=== PATIENT | male | born 1965 | race African-American/Black ===

== ENCOUNTER 2018-06-15 17:42 | Emergency (ER) | payer OTHER ==
[~2018-06-15] VITALS: Ht 177.8 cm; Wt 86.2 kg
[~2018-06-15 17:42] MED LIST: BENAZEPRIL HCL10 MG ORAL; KEPPRA500 M4 ORAL
[2018-06-15 17:45] VITALS: BP 116/85
[2018-06-15] MEDS ORDERED: Sodium Chloride 500ML 500 ML IV ONE (17:58)
[2018-06-15] MEDS ORDERED: levETIRAcetam 500 MG in D5W 110 ML IV ONE (18:00)
[2018-06-15 18:22] LABS: BASOPHILS % (AUTO) 2.7 % (0.0-2.0); EOSINOPHILS % (AUTO) 4.9 % (0.0-3.0); HEMATOCRIT 52.6 % (42.0-52.0); HEMOGLOBIN 16.4 G/DL (14.2-18.0); LYMPHOCYTES % (AUTO) 46.5 % (20.0-45.0); MEAN CORPUSCULAR VOLUME 94 FL (80-99); MONOCYTES % (AUTO) 6.5 % (1.0-10.0); NEUTROPHILS % (AUTO) 39.3 % (45.0-75.0); PLATELET COUNT 290 K/UL (150-450); RED BLOOD COUNT 5.58 M/UL (4.70-6.10); RED CELL DISTRIBUTION WIDTH 14.6 % (11.6-14.8); WHITE BLOOD COUNT 8.3 K/UL (4.8-10.8)
[2018-06-15 18:26] LABS: ANION GAP 28 mmol/L (5-15); BLOOD UREA NITROGEN 18 mg/dL (7-18); CALCIUM 9.9 MG/DL (8.5-10.1); CARBON DIOXIDE 10 MMOL/L (21-32); CHLORIDE 105 MMOL/L (98-107); CREATININE 2.7 MG/DL (0.55-1.30); POTASSIUM 4.7 MMOL/L (3.5-5.1); SODIUM 143 MMOL/L (136-145)
[2018-06-15 18:33] LABS: ALANINE AMINOTRANSFERASE 32 U/L (12-78); ALBUMIN 4.1 G/DL (3.4-5.0); ALBUMIN/GLOBULIN RATIO 1.1 (1.0-2.7); ALKALINE PHOSPHATASE 64 U/L (46-116); ASPARTATE AMINO TRANSFERASE 26 U/L (15-37); BILIRUBIN,TOTAL 0.4 MG/DL (0.2-1.0)
[2018-06-15] MEDS ORDERED: ASPIR 8181 MG ORAL (18:56)
[2018-06-15] MEDS ORDERED: TRIAMTERENE-HC1 EAC5 ORAL (18:56)
[2018-06-15] MEDS ORDERED: AMLODIPINE BESYL5 MG ORAL (18:56)
[2018-06-15] MEDS ORDERED: LOSARTAN POTASS50 MG ORAL (18:56)
[2018-06-15] MEDS ORDERED: VITAMIN D250000 UNI1 ORAL (18:56)
[2018-06-15] MEDS ORDERED: LISINOPRIL20 MG ORAL (18:56)
[2018-06-15] MEDS ORDERED: LISINOPRIL40 MG ORAL (18:56)
[2018-06-15] MEDS ORDERED: LISINOPRIL10 MG ORAL (18:56)
--- NOTE | 2018-06-15 19:56 | Emergency Room Report ---
History of Present Illness General Chief Complaint: Seizure Source: Patient Present Illness HPI 52-year-old male presents ED for evaluation. Patient had witnessed seizure today. Witnessed by friends. Upon arrival patient is post ictal. No reported incontinence. No tongue injury. Friends told EMS that patient has history of seizures but they do not know what medications he takes for seizures. Upon arrival patient showing no signs of distress. No other aggravating relieving factors. Denies any other associated symptoms Allergies: Coded Allergies: No Known Allergies (Unverified , 08/07/15) Patient History Past Medical History: HTN, seizures Past Surgical History: none Pertinent Family History: none Social History: Denies: smoking, alcohol use, drug use Immunizations: UTD Reviewed Nursing Documentation: PMH: Agreed; PSxH: Agreed Nursing Documentation-PMH Past Medical History: No History, Except For Hx Hypertension: Yes Hx Seizures: Yes Review of Systems All Other Systems: negative except mentioned in HPI Physical Exam Vital Signs Date Time Temp Pulse Resp B/P (MAP) Pulse Ox O2 Delivery O2 Flow Rate FiO2 06/15/18 17:38 98.2 79 18 105/70 99 Room Air 98.2 06/15/18 17:45 2.0 Sp02 EP Interpretation: reviewed, normal General Appearance: no apparent distress, GCS 15, non-toxic, Postictal Head: normocephalic, atraumatic Eyes: bilateral eye normal inspection, bilateral eye PERRL ENT: hearing grossly normal, normal pharynx, no angioedema, normal voice Neck: full range of motion, supple/symm/no masses Respiratory: chest non-tender, lungs clear, normal breath sounds, speaking full sentences Cardiovascular #1: regular rate, rhythm, no edema Cardiovascular #2: 2+ carotid (R), 2+ carotid (L), 2+ radial (R), 2+ radial (L) , 2+ dorsalis pedis (R), 2+ dorsalis pedis (L) Gastrointestinal: normal bowel sounds, non tender, soft, non-distended, no guarding, no rebound Rectal: deferred Genitourinary: normal inspection, no CVA tenderness Musculoskeletal: back normal, gait/station normal, normal range of motion, non- tender Neurologic: other - postictal Psychiatric: other - postictal Reflexes: 3+ bicep (R), 3+ bicep (L), 3+ tricep (R), 3+ tricep (L), 3+ knee (R) , 3+ knee (L) Skin: normal color, no rash, warm/dry, well hydrated Lymphatic: no adenopathy Medical Decision Making Diagnostic Impression: Primary Impression: Epileptic seizure, generalized Additional Impressions: Renal insufficiency Marijuana abuse ER Course Hospital Course 52-year-old M presents to ED status post seizure. Differential diagnosis includes- breakthrough seizure, alcohol abuse, noncompliance with medication Clinical course Patient placed on stretcher. Initial history and physical I ordered labs, IV fluids, Keppra, CT brain Labs-Cr 2.7, no leukocytosis, hemoglobin/hematocrit stable. Utox + THC CT Brain ok EKGnormal sinus rhythm no acute ischemic changes interpreted by me Patient allowed to rest is now awake alert oriented x3. ambulating without difficulty. Discussed findings with the patient. Patient aware of his elevated creatinine. States he will follow-up with his PMD. Patient states he has his seizure medications at home. I explained that marijuana will lower the seizure threshold Diagnosis - renal insufficiency, marijuana abuse, seizure disorder stable and discharged to home. Followup with PMD. Return to ED if symptoms recur or worsen Labs Test 06/15/18 17:49 06/15/18 19:56 White Blood Count 8.3 K/UL (4.8-10.8) Red Blood Count 5.58 M/UL (4.70-6.10) Hemoglobin 16.4 G/DL (14.2-18.0) Hematocrit 52.6 % (42.0-52.0) Mean Corpuscular Volume 94 FL (80-99) Mean Corpuscular Hemoglobin 29.4 PG (27.0-31.0) Mean Corpuscular Hemoglobin Concent 31.2 G/DL (32.0-36.0) Red Cell Distribution Width 14.6 % (11.6-14.8) Platelet Count 290 K/UL (150-450) Mean Platelet Volume 6.7 FL (6.5-10.1) Neutrophils (%) (Auto) 39.3 % (45.0-75.0) Lymphocytes (%) (Auto) 46.5 % (20.0-45.0) Monocytes (%) (Auto) 6.5 % (1.0-10.0) Eosinophils (%) (Auto) 4.9 % (0.0-3.0) Basophils (%) (Auto) 2.7 % (0.0-2.0) Sodium Level 143 MMOL/L (136-145) Potassium Level 4.7 MMOL/L (3.5-5.1) Chloride Level 105 MMOL/L (98-107) Carbon Dioxide Level 10 MMOL/L (21-32) Anion Gap 28 mmol/L (5-15) Blood Urea Nitrogen 18 mg/dL (7-18) Creatinine 2.7 MG/DL (0.55-1.30) Estimat Glomerular Filtration Rate 30.1 mL/min (>60) Glucose Level 128 MG/DL (74-106) Calcium Level 9.9 MG/DL (8.5-10.1) Total Bilirubin 0.4 MG/DL (0.2-1.0) Aspartate Amino Transf (AST/SGOT) 26 U/L (15-37) Alanine Aminotransferase (ALT/SGPT) 32 U/L (12-78) Alkaline Phosphatase 64 U/L (46-116) Total Protein 8.0 G/DL (6.4-8.2) Albumin 4.1 G/DL (3.4-5.0) Globulin 3.9 g/dL Albumin/Globulin Ratio 1.1 (1.0-2.7) Salicylates Level 6.5 ug/mL (2.8-20) Acetaminophen Level < 2 MCG/ML (10-30) Phenytoin (Dilantin) Level < 0.5 ug/mL (10-20) Valproic Acid (Depakene) Level < 3 MCG/ML (50-100) Serum Alcohol < 3 mg/dL Urine Opiates Screen Negative (NEGATIVE) Urine Barbiturates Screen Negative (NEGATIVE) Phencyclidine (PCP) Screen Negative (NEGATIVE) Urine Amphetamines Screen Negative (NEGATIVE) Urine Benzodiazepines Screen Negative (NEGATIVE) Urine Cocaine Screen Negative (NEGATIVE) Urine Marijuana (THC) Screen Positive (NEGATIVE) EKG Diagnostic Results Rate: normal Rhythm: NSR ST Segments: no acute changes ASA given to the pt in ED: No Rhythm Strip Diag. Results EP Interpretation: yes Rhythm: NSR, no PVC's, no ectopy CT/MRI/US Diagnostic Results CT/MRI/US Diagnostic Results : Imaging Test Ordered: CT Head Impression no acute process Last Vital Signs Date Time Temp Pulse Resp B/P (MAP) Pulse Ox O2 Delivery O2 Flow Rate FiO2 06/15/18 17:45 98.4 105 25 116/85 93 Nasal Cannula 2.0 98.4 Status: improved Disposition: HOME, SELF-CARE Condition: Stable Referrals: [facility],REFERRING (PCP) Andrez Bolaños MD Jun 15, 2018 19:56
[2018-06-15 20:40] VITALS: BP 160/89
[2018-06-15 21:20] VITALS: BP 178/89
--- NOTE | 2018-06-16 08:49 | Diagnostic Imaging Report ---
Indications: Seizure Technique: Spiral acquisitions obtained through the brain. Angled axial and coronal 5 x 5 mm slices were reconstructed. Total dose length product 1421.48 mGycm. CTDI vol(s) 70.38 mGy. Dose reduction achieved using automated exposure control Comparison: None. Findings: There is an area of encephalomalacia in the right posterior parietal lobe and extending slightly into the temporal lobe, consistent with old infarct. This results in ex vacuo dilatation of the atrium and posterior body of the right lateral ventricle. Old lacunar infarct is seen in the right caudate head. There is also some encephalomalacia in the right frontal opercular region. There is fairly extensive periventricular deep white matter low-attenuation, consistent with chronic ischemic change. The remainder of the ventricles and extra-axial CSF spaces demonstrate normal caliber. Visualized orbits and sinuses are unremarkable. The calvarium is intact. No acute intracranial hemorrhage or edema, mass effect, nor midline shift. Impression: Multiple old infarcts Fairly extensive periventricular deep white matter chronic ischemic changes. Negative for acute intracranial bleed or mass effect This agrees with the preliminary interpretation provided overnight by [facility]erad[facility] service. The CT scanner at [facility] is accredited by the [employer] and the scans are performed using protocols designed to limit radiation exposure to as low as reasonably achievable to attain images of sufficient resolution adequate for diagnostic evaluation.
--- NOTE | 2018-06-16 13:35 | Cardiology Report ---
APPROVED REPORT EKG Measurement Heart [id number] Sinus tachycardia Possible Left atrial enlargement Borderline ECG
== END 2018-06-15 21:21 | disposition home or self-care (01) ==
LOC: EDBD 17:42 → EMR 18:52
DX: G40.409 Other generalized epilepsy and epileptic syndromes, not intractable, without status epilepticus (principal); N28.9 Disorder of kidney and ureter, unspecified; F12.10 Cannabis abuse, uncomplicated; I10 Essential (primary) hypertension
CPT/HCPCS: 36415; 70450; 80053; 80164; 80185; 80307; 80329; 85025; 93005; 96374; 99284; J1953; J7040